=== PATIENT | male | born 1990 | race Caucasian/White ===

== ENCOUNTER 2017-02-14 10:47 | Emergency (ER) | payer BC ==
[~2017-02-14] VITALS: Ht 175.3 cm; Wt 54.5 kg
[~2017-02-14 10:47] MED LIST: NO HOME MEDICATIONS
[2017-02-14 11:03] VITALS: BP 128/60; TEMP 99.5
[2017-02-14] MEDS ORDERED: NORCO 325 MG-51 TAB PO (12:34)
[2017-02-14 12:44] VITALS: PULSE 62
== END 2017-02-14 12:46 | disposition home or self-care (01) ==
LOC: COL.ER 10:47
DX: K08.89 Other specified disorders of teeth and supporting structures (principal); F17.210 Nicotine dependence, cigarettes, uncomplicated